=== PATIENT | female | born 1995 | race Caucasian/White ===

== ENCOUNTER 2018-10-15 09:52 | Emergency (ER) | payer OTHER ==
[2018-10-15] MEDS ORDERED: IBUPROFEN 800 MG TABLET PO STA (13:18)
[2018-10-15] MEDS ORDERED: DEXAMETHASONE 10 MG/ML VIAL PO STA (13:18)
--- NOTE | 2018-10-15 13:20 | ED Physician Documentation ---
History of Present Illness - Stated complaint Stated Complaint: THROAT PX - Chief complaint Chief Complaint: Heent - History obtained from History obtained from: Patient - History of Present Illness Timing: How many days ago (4) Pain level max: 6 Pain level now: 5 - Additonal information Additional information: 23-year-old female presents to the emergency department with a sore throat for the past 4 days. No fever. No rhinorrhea, mild congestion. Mild cough. No vomiting. Denies any possibility of . Has not taken anything for this. Better with rest and worse with swallowing Review of Systems Constitutional: denies: Fever, Chills Throat: reports: Sore throat Respiratory: reports: Cough : denies: Now EGA Skin: denies: Rash PD PAST MEDICAL HISTORY - Past Medical History Past Medical History: No - Present Medications Home Medications: Ambulatory Orders Medication Instructions Recorded Confirmed Antidepressant 0 mg 10/15/18 Control Pill 0 mg DAILY 10/15/18 Ibuprofen [Motrin] 800 mg PO Q8H PRN #30 tablet 10/15/18 traZODone [Desyrel] 0 mg 10/15/18 - Allergies Allergies/Adverse Reactions: Allergies Allergy/AdvReac Type Severity Reaction Status Date / Time No Known Drug Allergies Allergy Verified 10/15/18 10:18 PD ED PE NORMAL - Vitals Vital signs reviewed: Yes - General General: Alert and oriented X 3, No acute distress, Well developed/nourished - HEENT HEENT: PERRL, Ears normal, Moist mucous membranes, Other (Mild posterior pharyngeal erythema without tonsillar exudates. Uvula midline. No trismus. Normal phonation) - Neck Neck: Supple, no meningeal sign, No adenopathy - Cardiac Cardiac: RRR, Strong equal pulses - Respiratory Respiratory: No respiratory distress, Clear bilaterally - Abdomen Abdomen: Soft, Non tender, Non distended - Derm Derm: Warm and dry, No rash - Neuro Neuro: Alert and oriented X 3 - Psych Psych: Normal mood, Normal affect Results - Vitals Vitals: Vital Signs - 24 hr 10/15/18 10:16 Temperature 36.8 C Heart Rate 103 H Respiratory 16 Rate Blood Pressure 116/79 O2 Saturation 97 Oxygen O2 Source Room air - Labs Labs: Laboratory Tests 10/15/18 10:20 Group A Strep Rapid Negative PD MEDICAL DECISION MAKING - ED course Complexity details: reviewed results, considered differential, d/w patient ED course: 23-year-old female with what appears to be a viral pharyngitis. Given dexamethasone here. We will continue supportive care and follow-up with her doctor. She is very well-appearing, nontoxic. Afebrile. No evidence of peritonsillar abscess. Patient counseled regarding signs and symptoms for which I believe and urgent re-evaluation would be necessary. Patient with good understanding of and agreement to plan and is comfortable going home at this time This document was made in part using voice recognition software. While efforts are made to proofread this document, sound alike and grammatical errors may occur. Departure - Departure Disposition: Home, Self Care Clinical Impression: Viral pharyngitis Condition: Good Instructions: ED Pharyngitis Viral Follow-Up: GEORGE OLSON [Primary Care Provider] - Within 1 week (If not better) Prescriptions: Ibuprofen [Motrin] 800 mg PO Q8H PRN #30 tablet PRN Reason: PAIN &/OR FEVER Comments: Drink plenty of fluids. Return if you worsen. Follow-up with your doctor for further care. A backup culture was sent and we will call you if it is positive. Forms: Activity restrictions
[2018-10-15 13:27] VITALS: BP 112/75
== END 2018-10-15 13:26 | disposition home or self-care (01) ==
LOC: ED 09:52
DX: J02.8 Acute pharyngitis due to other specified organisms (principal); B97.89 Other viral agents as the cause of diseases classified elsewhere
CPT/HCPCS: 87070; 87430; 99283; A9270

== ENCOUNTER 2018-11-02 09:24 | Emergency (ER) | payer OTHER ==
[2018-11-02] MEDS ORDERED: KETOROLAC 30 MG/ML VIAL IVP STA (11:24)
[2018-11-02] MEDS ORDERED: DEXAMETHASONE 10 MG/ML VIAL IVP STA (11:24)
[2018-11-02] MEDS ORDERED: SODIUM CHLORIDE 0.9% 1,000 ML IV ONE (11:24)
[2018-11-02] MEDS ORDERED: PROCHLORPERAZINE 10 MG/2 ML VIAL IVP STA (11:24)
[2018-11-02] MEDS ORDERED: diphenhydrAMINE INJ 50 MG/ML VIAL IVP STA (11:24)
--- NOTE | 2018-11-02 11:27 | ED Physician Documentation ---
PD HPI HEADACHE - Stated complaint Stated Complaint: MIGRAINE/VOMITING - Chief complaint Chief Complaint: Neuro - History obtained from History obtained from: Patient, Family - History of Present Illness Timing - onset: Enter time (0700), Today Timing - onset during: Rest Timing - duration: Hours Timing - details: Abrupt onset, Still present Location: Right, Left Quality: Throbbing Associated symptoms: Nausea, Vomiting. No: Fever, Stiff neck, Weakness, Numbness, Syncope, Seizure, Eye pain, Vision changes Improved by: Rest, Dark room, Quiet Worsened by: Light, Noise, Moving Contributing factors: No: Anticoagulated Similar symptoms before: Diagnosis (migraine) Recently seen: Emergency Dept - Additional information Additional information: 23-year-old female with a history of migraine headaches has developed a headache this morning with photophobia and nausea and vomiting and bitemporal cranial pain. She has had a sore throat past month that is come and gone and she has had some persistence of her symptoms. Review of Systems Constitutional: denies: Fever, Chills, Myalgias Eyes: denies: Decreased vision Ears: denies: Ear pain Nose: reports: Congestion. denies: Rhinorrhea / runny nose Throat: reports: Sore throat Cardiac: denies: Chest pain / pressure, Palpitations Respiratory: denies: Dyspnea, Cough GI: reports: Nausea, Vomiting. 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 : None HEENT: None Psych: Depression, Anxiety Musculoskeletal: None Derm: None - Past Surgical History Past Surgical History: No - Present Medications Home Medications: Ambulatory Orders Medication Instructions Recorded Confirmed Ibuprofen [Motrin] 800 mg PO Q8H PRN #30 tablet 10/15/18 traZODone [Desyrel] 100 mg DAILY 10/15/18 Citalopram [CeleXA] 50 mg DAILY 11/02/18 11/02/18 - Allergies Allergies/Adverse Reactions: Allergies Allergy/AdvReac Type Severity Reaction Status Date / Time Penicillins Allergy Unknown Verified 11/02/18 09:52 - Social History Does the pt smoke?: No Smoking Status: Never smoker Does the pt drink ETOH?: No Does the pt have substance abuse?: No - Immunizations Immunizations are current?: Yes - POLST Patient has POLST: No PD ED PE NORMAL - Vitals Vital signs reviewed: Yes (tachy ) - General General: Alert and oriented X 3, Well developed/nourished, Other (resting in a darkened room ) - HEENT HEENT: Atraumatic, PERRL, EOMI, Ears normal, Moist mucous membranes, Pharynx benign, Dentition benign - Neck Neck: Supple, no meningeal sign, No bony TTP - Cardiac Cardiac: RRR, No murmur - Respiratory Respiratory: No respiratory distress, Clear bilaterally - Abdomen Abdomen: Soft, Non tender - Back Back: No CVA TTP, No spinal TTP - Derm Derm: Normal color, Warm and dry, No rash - Extremities Extremities: No deformity, No edema - Neuro Neuro: Alert and oriented X 3, 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, No motor deficit, No sensory deficit, Normal speech Eye Opening: Spontaneous Motor: Obeys Commands Verbal: Oriented GCS Score: 15 - Psych Psych: Normal mood, Normal affect Results - Vitals Vitals: Vital Signs - 24 hr 11/02/18 11/02/18 09:50 12:34 Temperature 37.0 C Heart Rate 102 H 69 Respiratory 16 18 Rate Blood Pressure 110/75 103/65 O2 Saturation 98 99 Oxygen O2 Source Room air PD MEDICAL DECISION MAKING - ED course Complexity details: reviewed results, re-evaluated patient, considered differential, d/w patient, d/w family ED course: 23-year-old female with a history of migraine headaches has a migraine today she is administered a liter of saline 10 mg of dexamethasone 10 of Compazine 25 of Benadryl and 30 of Toradol intravenously. Departure - Departure Disposition: 01 Home, Self Care Clinical Impression: Migraine Qualifiers: Migraine type: without aura Status migrainosus presence: without status migrainosus Intractability: not intractable Qualified Code(s): G43.009 - Migraine without aura, not intractable, without status migrainosus Condition: Stable Instructions: ED Headache Migraine Follow-Up: GEORGE OLSON [Primary Care Provider] -
[2018-11-02 12:36] VITALS: BP 103/65
== END 2018-11-02 13:15 | disposition home or self-care (01) ==
LOC: ED 09:24
DX: G43.009 Migraine without aura, not intractable, without status migrainosus (principal)
CPT/HCPCS: 96361; 96374; 99283; 99284

== ENCOUNTER 2019-03-18 20:34 | Emergency (ER) | payer OTHER ==
[2019-03-18 21:13] LABS: BASOPHILS # (AUTO) 0.1 10^3/uL (0.0-0.1); BASOPHILS % (AUTO) 0.9 %; EOSINOPHILS # (AUTO) 0.4 10^3/uL (0.0-0.7); EOSINOPHILS % (AUTO) 4.5 %; HGB - HEMOGLOBIN 13.5 g/dL (12.0-16.0); LYMPHOCYTES # (AUTO) 2.6 10^3/uL (1.5-3.5); LYMPHOCYTES % (AUTO) 30.2 %; MEAN CORPUSCULAR HEMOGLOBIN 29.4 pg (27.0-31.0); MEAN CORPUSCULAR HGB CONC 32.5 g/dL (32.0-36.0); MEAN CORPUSCULAR VOLUME 90.4 fL (81.0-99.0); MONOCYTES # (AUTO) 0.5 10^3/uL (0.0-1.0); MONOCYTES % (AUTO) 5.7 %; NEUTROPHILS # (AUTO) 5.1 10^3/uL (1.5-6.6); NEUTROPHILS % (AUTO) 58.5 %; PLT - PLATELET COUNT 369 10^3/uL (130-450); RED BLOOD COUNT 4.59 10^6/uL (4.20-5.40); RED CELL DISTRIBUTION WIDTH 13.4 % (12.0-15.0); WHITE BLOOD COUNT 8.7 x10^3/uL (4.8-10.8)
[2019-03-18 21:27] LABS: ALBUMIN 4.1 g/dL (3.2-5.5); ALBUMIN/GLOBULIN RATIO 1.2 (1.0-2.2); BILIRUBIN,TOTAL 1.5 mg/dL (0.2-1.0); CALCIUM 9.2 mg/dL (8.5-10.3); CREATININE 0.6 mg/dL (0.4-1.0); TOTAL PROTEIN 7.5 g/dL (6.7-8.2)
[2019-03-18 23:14] LABS: BILIRUBIN,URINE NEGATIVE (NEGATIVE); GLUCOSE, URINE (UA) NEGATIVE (NEGATIVE); KETONES,URINE (UA) NEGATIVE (NEGATIVE); LEUKOCYTE ESTERASE, URINE TRACE (NEGATIVE); NITRITE,URINE NEGATIVE (NEGATIVE); OCCULT BLOOD,URINE LARGE (NEGATIVE); PH,URINE 6.5 PH (5.0-7.5); PROTEIN,URINE 30 mg/dL (NEGATIVE); UROBILINOGEN,URINE 0.2 (NORMAL) E.U./dL (NORMAL)
[2019-03-18 23:22] LABS: CLARITY,URINE HAZY (CLEAR)
[2019-03-18 23:32] LABS: BACTERIA,URINE Few /HPF (None Seen); SQUAMOUS EPITHELIAL CELL,UR MANY Squamous (<= Few)
--- NOTE | 2019-03-18 23:52 | ED Physician Documentation ---
History of Present Illness - Stated complaint Stated Complaint: HEADACHE/VOM/ABD PX/DIZZY - Chief complaint Chief Complaint: Abd Pain - History obtained from History obtained from: Patient - History of Present Illness Timing: How many days ago (3) Pain level now: 7 Improved by: nothing Worsened by: no exacerbating factors - Additonal information Additional information: I have a really bad migraine, per patient. also c/o cramps in my stomach. nausea, vomiting. symptoms x 3 days. it is unclear if she actually carries the diagnosis of migraine headache. she says the abdominal discomfort has been typical for her endometriosis pains. she says she took 1 gram acetaminophen 7 AM, 1 PM, and 7:20 PM. Review of Systems Constitutional: reports: Reviewed and negative Eyes: reports: Photophobia. denies: Loss of vision, Decreased vision Cardiac: reports: Reviewed and negative Respiratory: reports: Reviewed and negative GI: reports: Abdominal Pain, Nausea, Vomiting. 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 : None HEENT: None Psych: Depression, Anxiety Musculoskeletal: None Derm: None - Past Surgical History Past Surgical History: No - Present Medications Home Medications: Ambulatory Orders Medication Instructions Recorded Confirmed Ibuprofen [Motrin] 800 mg PO Q8H PRN #30 tablet 10/15/18 traZODone [Desyrel] 100 mg DAILY 10/15/18 Citalopram [CeleXA] 50 mg DAILY 11/02/18 11/02/18 Leuprolide [Lupron] 7.5 mg IM ONCE 03/18/19 03/18/19 HYDROcod/ACETAM 5/325 [[place] 5/325] 1 - 2 ea PO Q6H PRN #15 tablet 03/19/19 Ondansetron Odt [Zofran] 4 mg TL Q6H PRN #10 tablet 03/19/19 - Allergies Allergies/Adverse Reactions: Allergies Allergy/AdvReac Type Severity Reaction Status Date / Time Penicillins Allergy Unknown Verified 03/18/19 20:54 - Social History Does the pt smoke?: No Smoking Status: Never smoker Does the pt drink ETOH?: No Does the pt have substance abuse?: No - Immunizations Immunizations are current?: Yes - POLST Patient has POLST: No PD ED PE NORMAL - Vitals Vital signs reviewed: Yes - General General: Alert and oriented X 3, Well developed/nourished, Other (lights off in room per patient reauest; appears to be mild/mod discomfort) - HEENT HEENT: PERRL, EOMI, Moist mucous membranes - Neck Neck: Supple, no meningeal sign - Cardiac Cardiac: RRR, No murmur - Respiratory Respiratory: No respiratory distress, Clear bilaterally - Abdomen Abdomen: Soft, Non tender - Back Back: No CVA TTP - Derm Derm: Normal color, Warm and dry Results - Vitals Vitals: Oxygen O2 Source Room air - Labs Labs: Laboratory Tests 03/18/19 03/18/19 03/18/19 21:09 21:09 22:57 WBC 8.7 RBC 4.59 Hgb 13.5 Hct 41.5 MCV 90.4 MCH 29.4 MCHC 32.5 RDW 13.4 Plt Count 369 MPV 10.0 Neut # (Auto) 5.1 Lymph # (Auto) 2.6 Barnes # (Auto) 0.5 Eos # (Auto) 0.4 Baso # (Auto) 0.1 Absolute Nucleated RBC 0.00 Nucleated RBC % 0.0 Sodium 139 Potassium 3.7 Chloride 103 Carbon Dioxide 23 Anion Gap 13.0 BUN 11 Creatinine 0.6 Estimated GFR (MDRD) 125 Glucose 98 Calcium 9.2 Total Bilirubin 1.5 H AST 12 ALT 16 Alkaline Phosphatase 36 L Total Protein 7.5 Albumin 4.1 Globulin 3.4 Albumin/Globulin Ratio 1.2 Lipase 25 Urine Color DARK YELLOW Urine Clarity HAZY Urine pH 6.5 Ur Specific [place] 1.025 Urine Protein 30 H Urine Glucose (UA) NEGATIVE Urine Ketones NEGATIVE Urine Occult Blood LARGE H Urine Nitrite NEGATIVE Urine Bilirubin NEGATIVE Urine Urobilinogen 0.2 (NORMAL) Ur Leukocyte Esterase TRACE H Urine RBC 11-25 H Urine WBC 0-3 Ur Squamous Epith Cells MANY Squamous H Urine Bacteria Few Ur Microscopic Review INDICATED Urine Culture Comments NOT INDICATED PD MEDICAL DECISION MAKING - ED course ED course: improved with IV dilaudid, normal saline, zofran, decadron, toradol. given second dose of dilaudid prior to discharge. encouraged to f/u with pmd, particularly to review whether she has been trialled on migraine-specific medication such as imitrex Departure - Departure Disposition: 01 Home, Self Care Clinical Impression: Headache, Pelvic pain Condition: Good Instructions: ED Headache Migraine, ED Pelvic Pain [facility] [place] Follow-Up: CHRISTIAN Strange [Provider Group] - Within 1 week Prescriptions: HYDROcod/ACETAM 5/325 [[place] 5/325] 1 - 2 ea PO Q6H PRN #15 tablet PRN Reason: Pain Ondansetron Odt [Zofran] 4 mg TL Q6H PRN #10 tablet PRN Reason: Nausea / Vomiting Discharge Date/Time: 03/19/19 02:02
[2019-03-19] MEDS ORDERED: ONDANSETRON 4 MG/2 ML VIAL IVP STA (00:10)
[2019-03-19] MEDS ORDERED: HYDROmorphone 1 MG/ML CARPUJECT IVP STA ×2 (00:10→01:31)
[2019-03-19] MEDS ORDERED: KETOROLAC 30 MG/ML VIAL IVP STA (00:10)
[2019-03-19] MEDS ORDERED: SODIUM CHLORIDE 0.9% 1,000 ML IV STA (00:11)
[2019-03-19] MEDS ORDERED: DEXAMETHASONE 10 MG/ML VIAL IVP STA (00:11)
[2019-03-19 01:44] VITALS: BP 98/64
== END 2019-03-19 02:02 | disposition home or self-care (01) ==
LOC: ED 20:34
DX: R51 Headache (principal); R10.2 Pelvic and perineal pain; Z86.69 Personal history of other diseases of the nervous system and sense organs
CPT/HCPCS: 36415; 80053; 81001; 83690; 85025; 96361; 96374; 96375; 96376; 99284; 99285; J1170; 81003; 87086

== ENCOUNTER 2019-03-24 10:15 | Emergency (ER) | payer OTHER ==
[2019-03-24] MEDS ORDERED: KETOROLAC 30 MG/ML VIAL IVP STA (11:06)
[2019-03-24] MEDS ORDERED: PROCHLORPERAZINE 10 MG/2 ML VIAL IVP STA (11:07)
[2019-03-24] MEDS ORDERED: diphenhydrAMINE INJ 50 MG/ML VIAL IVP STA (11:07)
--- NOTE | 2019-03-24 11:12 | ED Physician Documentation ---
PD HPI HEADACHE - Stated complaint Stated Complaint: MIGRAINE/VOMITING - Chief complaint Chief Complaint: Neuro - History obtained from History obtained from: Patient, Family - History of Present Illness Timing - onset: Last night Timing - onset during: Rest Timing - details: Gradual onset Pain level max: 8 Pain level now: 8 Location: Front Quality: Throbbing, Aching Associated symptoms: Nausea. No: Fever, Stiff neck, Vomiting, Weakness, Numbness, Syncope, Seizure, Eye pain, Vision changes Improved by: Rest, Dark room Worsened by: Light, Noise Similar symptoms before: Diagnosis (Chronic migraines. Feels similar to prior migraines. Gradual onset.) Review of Systems Ten Systems: 10 systems reviewed and negative Constitutional: denies: Fever, Chills Nose: denies: Rhinorrhea / runny nose, Congestion, Epistaxis, Sinus pressure / pain Throat: denies: Sore throat Cardiac: denies: Chest pain / pressure Respiratory: denies: Cough GI: denies: Vomiting : denies: Now EGA Skin: denies: Rash Musculoskeletal: denies: Neck pain, Back pain Neurologic: denies: Focal weakness, Numbness, Confused, Altered mental status, Head injury, LOC PD PAST MEDICAL HISTORY - Past Medical History Cardiovascular: None Respiratory: None Neuro: Migraines Endocrine/Autoimmune: None GI: None 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 : None HEENT: None Psych: Depression, Anxiety Musculoskeletal: None Derm: None - Past Surgical History Past Surgical History: No - Present Medications Home Medications: Ambulatory Orders Medication Instructions Recorded Confirmed SUMAtriptan [Imitrex] 25 mg PO ONCE PRN #9 tablet 03/24/19 - Allergies Allergies/Adverse Reactions: Allergies Allergy/AdvReac Type Severity Reaction Status Date / Time Penicillins Allergy Unknown Verified 03/24/19 11:03 - Social History Does the pt smoke?: No Smoking Status: Never smoker Does the pt drink ETOH?: No Does the pt have substance abuse?: No - Immunizations Immunizations are current?: Yes - POLST Patient has POLST: No PD ED PE NORMAL - Vitals Vital signs reviewed: Yes - General General: Alert and oriented X 3, No acute distress, Well developed/nourished - HEENT HEENT: Atraumatic, PERRL, EOMI, Ears normal, Moist mucous membranes, Pharynx benign - Neck Neck: Supple, no meningeal sign, No bony TTP - Cardiac Cardiac: RRR, Strong equal pulses - Respiratory Respiratory: No respiratory distress, Clear bilaterally - Abdomen Abdomen: Soft, Non tender, Non distended - Back Back: No spinal TTP - Derm Derm: Warm and dry - Neuro Neuro: Alert and oriented X 3, 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 Given Toradol, Compazine, Benadryl. Headache resolved. Will prescribe Imitrex for home. She is well-appearing, nontoxic. Afebrile. No evidence of subarachnoid hemorrhage, tumor, mass. Patient counseled regarding signs and symptoms for which I believe and urgent re-evaluation would be necessary. Patient with good understanding of and agreement to plan and is comfortable going home at this time This document was made in part using voice recognition software. While efforts are made to proofread this document, sound alike and grammatical errors may occur. Departure - Departure Disposition: 01 Home, Self Care Clinical Impression: Migraine Qualifiers: Migraine type: unspecified Status migrainosus presence: without status migrainosus Intractability: not intractable Qualified Code(s): G43.909 - Migraine, unspecified, not intractable, without status migrainosus Condition: Good Instructions: ED Headache Migraine [facility] [[facility]] - Within 1 week Prescriptions: SUMAtriptan [Imitrex] 25 mg PO ONCE PRN #9 tablet PRN Reason: headache Comments: Return if you worsen. You can use Imitrex as needed at home. Follow-up with your doctor for further care. Discharge Date/Time: 03/24/19 13:00
[2019-03-24 12:46] VITALS: BP 103/66
== END 2019-03-24 13:00 | disposition home or self-care (01) ==
LOC: ED 10:15
DX: G43.909 Migraine, unspecified, not intractable, without status migrainosus (principal)
CPT/HCPCS: 96374; 96375; 99283; 99284; J1200

== ENCOUNTER 2019-05-02 12:09 | Day surgery (SDC) | payer OTHER ==
[2019-05-02] MEDS ORDERED: LACTATED RINGERS 1,000 ML IV ONE ×3 (12:16→16:20)
[2019-05-02 12:38] LABS: HCG UR QUAL NEGATIVE
--- NOTE | 2019-05-02 15:14 | ANESTHESIA ---
Pre-Anesthesia VS, & Labs - Diagnosis pelvic pain - Procedure diagnostic lararoscopy, poss excison/fulguration of endometriosis, possible cystoscopy Vital Signs: Temp Pulse Resp BP Pulse Ox 36.1 C L 98 16 111/73 97 05/02/19 12:16 05/02/19 12:16 05/02/19 12:16 05/02/19 12:16 05/02/19 12:16 Height 5 ft 3 in Weight (kg) 64 kg Body Mass Index 24.7 - NPO >8 hours - Is Patient ?: No - Lab Results Lab results reviewed: Yes Home Medications and Allergies Home Medications: Ambulatory Orders Acetaminophen [Tylenol] 650 mg PO Q6H PRN 04/29/19 Naproxen [Naprosyn] 250 mg PO BID PRN 04/29/19 Norethindrone Acetate [Norethindrone AC ([place])] 5 mg PO DAILY 04/29/19 RX: Magnesium Oxide 400 mg PO DAILY PRN 04/29/19 RX: Trazodone HCl 100 mg PO QPM 04/29/19 Sertraline [Zoloft] 50 mg PO DAILY 04/29/19 Topiramate [Topiramate ER] 25 mg PO DAILY 04/29/19 Valacyclovir HCl [Valtrex] 1,000 mg PO ONCE PRN 04/29/19 Acetaminophen [Tylenol] 650 mg PO Q6H PRN 04/29/19 Magnesium Oxide 400 mg PO DAILY PRN 04/29/19 Naproxen [Naprosyn] 250 mg PO BID PRN 04/29/19 Norethindrone Acetate [Norethindrone AC ([place])] 5 mg PO DAILY 04/29/19 Sertraline [Zoloft] 50 mg PO DAILY 04/29/19 Topiramate [Topiramate ER] 25 mg PO DAILY 04/29/19 Trazodone HCl 100 mg PO QPM 04/29/19 Valacyclovir HCl [Valtrex] 1,000 mg PO ONCE PRN 04/29/19 Allergies/Adverse Reactions: Allergies Allergy/AdvReac Type Severity Reaction Status Date / Time Penicillins Allergy Unknown Verified 03/24/19 11:03 Anes History & Medical History - Anesthetic History Anesthesia Complications: reports: No previous complications Family history of Anesthesia Complications: Denies Family history of Malignant Hyperthermia: Denies - Medical History Cardiovascular: reports: None Pulmonary: reports: None Gastrointestinal: reports: None Urinary: reports: Other Neuro: reports: Migraines Musculoskeletal: reports: None Endocrine/Autoimmune: reports: None Blood Disorders: reports: None Skin: reports: None Smoking Status: Never smoker - Surgical History Eyes Ears Nose Throat (EENT): Other Exam General: Alert, Oriented x3, Cooperative Dental: WNL Mouth Openin Fingerbreadth Neck Mobility: Normal Mallampati classification: II Thyromental Distance: 4-6 cm Respiratory: Lungs clear, Normal breath sounds, No respiratory distress Cardiovascular: Regular rate Neurological: Normal speech Mental/Cognitive Status: Alert/Oriented X3 Cognitive Status: Within normal limits Plan Anesthesia Type: General Consent for Procedure(s) Verified and Reviewed: Yes Code Status: Attempt Resuscitation ASA classification: 2-Mild systemic disease Is this case an emergency?: No
[2019-05-02] MEDS ORDERED: ACETAMINOPHEN 1,000 MG/100 ML 100 ML IV ONE (15:26)
[2019-05-02] MEDS ORDERED: SILVER NITRATE APPLICATOR TOP ONE (15:26)
[2019-05-02] MEDS ORDERED: fentaNYL 100 MCG/2 ML VIAL IVP ONE (15:26)
[2019-05-02] MEDS ORDERED: METHYLENE BLUE 0.5% 50 MG/10 ML AMPULE ONE (15:26)
[2019-05-02] MEDS ORDERED: PROPOFOL 200 MG/20 ML VIAL IVP ONE (15:26)
[2019-05-02] MEDS ORDERED: DEXAMETHASONE 4 MG/ML VIAL IVP ONE (15:26)
[2019-05-02] MEDS ORDERED: BUPIVACAINE 0.25% PF 30 ML VIAL ONE (15:26)
[2019-05-02] MEDS ORDERED: ONDANSETRON 4 MG/2 ML VIAL IVP ONE (15:26)
[2019-05-02] MEDS ORDERED: LIDOCAINE-MPF 2% 5 ML VIAL IM ONE (15:26)
[2019-05-02] MEDS ORDERED: MIDAZOLAM 2 MG/2 ML VIAL IVP ONE (15:26)
[2019-05-02] MEDS ORDERED: GLYCOPYRROLATE 1 MG/5 ML VIAL IVP ONE (15:26)
[2019-05-02] MEDS ORDERED: KETOROLAC 30 MG/ML VIAL IVP ONE (15:26)
[2019-05-02] MEDS ORDERED: ROCURONIUM 50 MG/5 ML VIAL IVP ONE (15:26)
[2019-05-02] MEDS ORDERED: NEOSTIGMINE 1 MG/1 ML 10 ML MDV IVP ONE (15:26)
[2019-05-02] MEDS ORDERED: BUPIVACAINE 0.25% PF 30 ML VIAL SUBQ ONE (15:50)
[2019-05-02] MEDS ORDERED: ONDANSETRON 4 MG/2 ML VIAL IVP PRN (16:11)
[2019-05-02] MEDS ORDERED: HYDROmorphone 0.5 MG/0.5 ML SYRINGE IVP PRN (16:11)
[2019-05-02] MEDS ORDERED: oxyCODONE 5 MG TABLET PO PRN (16:11)
--- NOTE | 2019-05-02 16:16 | OPERATIVE REPORT ---
Operative Report - General Procedure Date: 05/02/19 Planned Procedure: diagnostic laparoscopy Pre-Op Diagnosis: chronic pelvic pain Procedure Performed: same as above Post Op Diagnosis: same as above - Procedure Note Primary Surgeon: Remington Dhillon Secondary Surgeon: Jose Cruz Zarate Anesthesia Provider: Abisai Ellington Anesthesia Technique: General ET tube Pathology: none IV Fluids (mL): 600 Estimated Blood Loss (mL): 2 Urine Output (mL): 75 Indications: chronic pelvic pain Findings: normal liver edge and stomach. Grossly normal bowel, normal appendix. Simple paratubal cysts bilaterally. Normally bilateral ovaries. Normal uterus. Filmy right scar on abdominal peritoneum right side at level of umbilicus. Complications: None - Other Other Information/Narrative: After informed consent was assured, the patient was taken to the operating room where anesthesia was induced. Patient was placed in low dorsal lithotomy. An exam under anesthesia revealed a small anteverted uterus. The patient was prepped and draped in the usual sterile fashion. A shore catheter was placed draining clear yellow urine. A surgical timeout was performed. A spongestick was placed in the vagina for manipulation. 0.25% marcaine plain was injected at the site of the incision. An incision was made at the umbilicus and the fascia and peritoneum were entered under direct visualization with the laparoscope. The abdomen was insufflated. Inspection of the bowel immediately under the entry site revealed no injury to the viscera. Lidocaine was then injected on the left lateral side 2 cm superior and medial to the anterior superior iliac spine. An incision was made and a 5 mm port was placed through the incision under visualization with the laparoscope. Survey of the abdomen and pelvis revealed a normal liver edge, normal appendix and normal ovaries bilaterally. The uterus was normal as were both fallopian tubes, though some simple paratubal cysts were seen. The anterior cul-de-sac, rectouterine space and both ovarian fossas were inspected. No endometriotic lesions were noted, however there was a filmy white scar in the right abdominal wall at the level of umbilicus. The trochars were removed from the abdomen. Port sites were closed with 4-0 monocryl, and steri- strips were used to cover the lateral port sites. Sponge and instrument counts were correct x 2. The shore catheter was removed. The patient was awoken and taken to PACU in stable condition. No complications were appreciated.
[2019-05-02] MEDS ORDERED: fentaNYL 100 MCG/2 ML VIAL ONE (16:47)
[2019-05-02] MEDS ORDERED: KETOROLAC 30 MG/ML VIAL IVP SCH (17:00)
[2019-05-02 17:07] VITALS: BP 111/71
[2019-05-02] MEDS ORDERED: oxyCODONE 5 MG TABLET ONE (17:09)
== END 2019-05-02 12:10 | disposition home or self-care (01) ==
LOC: SDS 12:09
PROVIDERS: ATTEND Obstetrics & Gynecology
PROC: 0WJJ4ZZ Inspection of Pelvic Cavity, Percutaneous Endoscopic Approach (ICD-10-PCS; principal; 2019-05-02 13:30)
DX: R10.2 Pelvic and perineal pain (principal); N94.6 Dysmenorrhea, unspecified; N94.12 Deep dyspareunia
CPT/HCPCS: 49320; 81025; A9270; J0131; J7120